=== PATIENT | female | born 1990 | race Caucasian/White ===

== ENCOUNTER 2024-05-27 05:16 | Inpatient (IN) ==
--- NOTE | 2024-05-16 15:20 | Anesthesiology Consultation ---
Date of Service May 16, 2024 Assessment & Plan (1) Encounter for pre-operative examination: Chart Review Chart Review: Acceptable Risk for Surgery and Patient NOT seen in Pre Admission Testing Infectious Disease screening: Per PAT nursing assessment on 05/16/24, No known infectious disease contacts in past 10 days or current infectious disease symptoms. No recent travel outside the country. History Surgery Operation Date: 05/27/24 07:30 Proposed Procedures p Section (Delivery of Baby Through Abdominal Incision) - Alba hartman DO Height/Weight Height: 5 ft 10 in Weight: 88.451 kg Allergies Allergy/AdvReac Type Severity Reaction Status Date / Time No Known Allergies Allergy Verified 05/16/24 14:02 Medications Home Medications Medication Instructions Recorded Confirmed Last Taken prenat.vits,prema,[id number] 1 tab PO QAM 10/03/23 05/16/24 Unknown calcium carbonate [Tums] 1 tab PO DAILY PRN Acid Reflux 03/19/24 05/16/24 Unknown Past Medical History Medical History (Updated 05/16/24 @ 15:17 by Carly Adame PA-C) Acid reflux occasional History of COVID-19 (2021) no hosp; resolved Past Family History Family History Aunt Breast cancer Grandmother (Maternal) Colorectal cancer Past Surgical History Surgical History Hx of section Hx of wisdom tooth extraction Social History Smoking Status: Never smoker Do You Dip or Chew Tobacco: No Hx Alcohol Use: No Hx Substance Use: No substance use type: does not use
--- NOTE | 2024-05-24 09:36 | History & Physical Report ---
Date of Service May 24, 2024 Assessment & Plan (1) Previous delivery affecting , antepartum: Plan: Plan for repeat section, reviewed consent, questions answered. History of Present Illness Chief Complaint: scheduled repeat CS Primary Care Provider: JASON PCP 33yo with EDC 05/19/24, scheduled for default repeat Csection. Prior section for intolerance of labor. Need to obtain operative note LTCS confirmed on op note--akh -Desires trial of labor after , consent signed. C/S SCHEDULED FOR 05/27/[address] JENSEN Persistent R umbilical vein on anatomy ECHO offered /[id number]-1/5/24--WNL Allergies Allergy/AdvReac Type Severity Reaction Status Date / Time No Known Allergies Allergy Verified 05/24/24 08:47 Home Medications Medication Instructions Recorded Confirmed Type prenat.vits,prema,[id number]-[id number]-[id number] 1 tab PO QAM 10/03/23 05/24/24 History calcium carbonate [Tums] 1 tab PO DAILY PRN Acid Reflux 03/19/24 05/24/24 History Patient History Medical History Acid reflux occasional History of COVID-19 (2021) no hosp; resolved Surgical History Hx of section Hx of wisdom tooth extraction Family History Aunt Breast cancer Grandmother (Maternal) Colorectal cancer Social History Smoking Status: Never smoker Second Hand Exposure: No; Do You Dip or Chew Tobacco: No; Hx Alcohol Use: No Hx Substance Use: No Preferred Language: Yemeni Communication Ability: Effective 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 Hand Required: No Beliefs That Will Affect Care: None marital status: marital status details: Herber (33) [phone] Current Living Situation: Spouse current occupational status: unemployed Feels Safe at Home: Yes Assistive Devices: None Review of Systems All systems reviewed & are unremarkable except as noted in HPI & below Physical Exam Constitutional: WD/WN, vitals as above Respiratory: normal respiratory effort, lungs clear to auscultation no respiratory distress Cardiovascular: Rate/Rhythm: regular rate and regular rhythm Gastrointestinal (Abdomen): Inspection/Auscultation: abdomen normal to inspection Percussion/Palpation: abdomen soft; abdomen nontender Gravid. No s/s chorio or abruption. Skin: no rashes, warm and dry Psychiatric: A+Ox3, euthymic affect Coding Level of Care Code None Diagnoses Previous delivery affecting , antepartum O34.219
[2024-05-27] MEDS ORDERED: SODIUM CHLORIDE 0.9% 250 ML IV PRN (05:25)
[2024-05-27] MEDS: LACTATED RINGER'S 1,000 ML IV SCH ×2 (05:30→06:33)
[2024-05-27] MEDS ORDERED: LACTATED RINGER'S 1,000 ML IV SCH ×2 (05:30→09:27)
[2024-05-27] MEDS ORDERED: ACETAMINOPHEN 500 MG TAB PO SCH (06:00)
[2024-05-27] MEDS ORDERED: ceFAZolin 2000MG 2,000 MG/15 ML SYR IV SCH (06:00)
[2024-05-27] MEDS ORDERED: CITRIC ACID/SODIUM CITRATE 15 ML UDC PO SCH (06:00)
[2024-05-27 06:01] LABS: Hematocrit (blood only) 32.3 % (37.0-47.0); Hemoglobin 11.2 g/dl (12.0-16.0); Mean Corpuscular Hemoglobin 30.8 pg (25.0-34.0); Mean Corpuscular Hgb Conc 34.7 g/dL (32.0-36.0); Mean Corpuscular Volume 88.7 fL (80.0-100.0); Mean Platelet Volume 11.5 fL (9.4-12.4); Platelet Count 166 K/uL (130-400); RDW Coefficient of Variation 13.3 % (11.5-14.5); RDW Standard Deviation 43.6 fL (36.4-46.3); Red Blood Count 3.64 M/uL (4.20-5.40); White Blood Count 7.74 K/ul (4.8-10.8)
[2024-05-27] MEDS: ACETAMINOPHEN 500 MG TAB PO SCH (06:31)
[2024-05-27] MEDS ORDERED: fentaNYL citrate PF 100 MCG/2 ML VIAL ONE (06:52)
[2024-05-27] MEDS ORDERED: DEXAMETHASONE SOD INJ 4 MG/ML VIAL ONE (06:52)
[2024-05-27] MEDS ORDERED: MoRPHine SULFATE PF 1 MG/ML 10 ML AMP/VIAL ONE (06:52)
[2024-05-27] MEDS ORDERED: KETOROLAC 30 MG/ML VIAL ONE (06:52)
[2024-05-27] MEDS ORDERED: OXYTOCIN 10 UNITS/ML VIAL ONE (06:52)
[2024-05-27] MEDS ORDERED: PHENYLEPHRINE 100MCG/ML 10ML SYR IV ONE (06:52)
[2024-05-27] MEDS ORDERED: ONDANSETRON INJ 2 MG/ML 2 ML VIAL ONE (06:52)
[2024-05-27] MEDS ORDERED: PHENYLEPHRINE HCL 25 MG/250 ML NSS IV ONE (06:52)
[2024-05-27] MEDS: CITRIC ACID/SODIUM CITRATE 15 ML UDC PO SCH (07:07)
--- NOTE | 2024-05-27 07:23 | History & Physical Bridge Note ---
Date of Service May 27, 2024 History & Physical Bridge Note I have examined the patient, reviewed the History & Physical and in the interval since the performance of the History & Physical I have noted the following changes of clinical significance: no changes noted
[2024-05-27] MEDS: ceFAZolin 2,000 MG in SYRINGE 0 ML IV SCH (07:33)
[2024-05-27] MEDS ORDERED: ePHEDrine sulfate 50 MG/5 ML SYR ONE (07:59)
[2024-05-27] MEDS ORDERED: ePHEDrine sulfate 50 MG/ML AMP IV PRN (08:04)
[2024-05-27] MEDS ORDERED: NALOXONE HCL 1 MG in SODIUM CHLORIDE 0.9% 1,000 ML IV PRN (08:04)
[2024-05-27] MEDS ORDERED: NALBUPHINE HCL INJ 10 MG/ML AMP IV PRN (08:04)
[2024-05-27] MEDS ORDERED: LACTATED RINGER'S 500 ML IV PRN (08:04)
[2024-05-27] MEDS ORDERED: ONDANSETRON INJ 2 MG/ML 2 ML VIAL IV PRN (08:04)
[2024-05-27] MEDS ORDERED: KETOROLAC 30 MG/ML VIAL IV PRN (08:04)
[2024-05-27] MEDS ORDERED: diphenhydrAMINE 50 MG/ML VIAL IV PRN ×2 (08:04→09:27)
[2024-05-27] MEDS ORDERED: PROMETHAZINE 6.25 MG/50.25 ML BAG IV PRN (08:04)
[2024-05-27] MEDS ORDERED: NALOXONE HCL 0.4 MG/1 ML VIAL/CARP IV PRN (08:04)
[2024-05-27] MEDS ORDERED: NALOXONE HCL 0.08 MG in SYRINGE 1.8 ML IV PRN (08:04)
[2024-05-27] MEDS ORDERED: NO NARCOTICS OR SEDATIVES SCH (08:15)
[2024-05-27] MEDS ORDERED: DC INTRASPINAL MORPHINE SCH (08:15)
[2024-05-27 08:40] LABS: Base Excess Cord Venous Blood -0.8 mEq/L (-7.7-1.9); Cord Venous Blood HCO3 24 mmol/L (18.4-26.8); Cord Venous Blood PCO2 37 mmHg (30.4-57.2); Cord Venous Blood PO2 44 mmHg (14.1-43.3); Cord Venous Blood pH 7.41 (7.20-7.44); O2 Saturation Cord Venous Bld 87.1 % (<68)
[2024-05-27 08:41] LABS: Base Excess Cord Arterial Bld -2.9 mEq/L (-9-1.8); CO2 Cord Arterial Blood 47 mmHg (39.1-73.5); HCO3 Cord Arterial Blood 24 mmol/L (19.7-28.5); Oxygen Sat Cord Arterial Blood < 60.0 % (<60); PO2 Cord Arterial Blood 26 mmHg (4.1-31.7); pH Cord Arterial Blood 7.31 (7.1-7.38)
--- NOTE | 2024-05-27 09:14 | Operative Report ---
Post Operative Report Pre & Post Diagnosis Operation Date: 05/27/24 07:30 Pre-Op Diagnosis: History of section, post-dates delivery Post-Op Diagnosis: Same I identified the patient and participated in the time-out.: Yes Procedure Operation Date: 05/27/24 07:30 Actual Procedures p Repeat Low Transverse Section - DO bianca Falk Surgical scar revision Surgeon DO Assistant Bianca Falk MD Quantitative Blood Loss (QBL) 401 Findings Consistent with Post-Op Diagnosis Normal appearing uterus, tubes, ovaries. Viable female , Apgars 8/9. Weight 5#11.8oz. Specimens placenta, cord blood, cord gas Drains clifford, clear yellow Anesthesia Type Spinal Complications none Disposition Accompanied Patient To Recovery: Yes Disposition: L&D Indications 33yo @ 41 09/03, history of x 1, postdates without onset of labor, therefore repeat section was recommended. Description of Procedure The patient was seen in her labor and delivery room, risks benefits and alternatives to surgery were reviewed. Informed consent obtained in the office. Questions were answered. She was taken to the operating room, spinal anesthesia was administered. She was then prepared and draped in the usual sterile fashion in the supine position with a leftward tilt. Timeout was confirmed. A Pfannenstiel skin incision was made with a scalpel with removal of prior scar, and carried through to the underlying layer of fascia. Fascia was nicked at midline, and this incision was extended bilaterally. The superior aspect of the fascial incision was grasped with Vadim clamps x2, elevated off the underlying rectus abdominis muscles, and dissected sharply and bluntly. In similar fashion, the inferior aspect of the fascial incision was dissected. The rectus abdominis muscles were , and the peritoneum was entered bluntly digitally. This was extended bilaterally. The bladder flap was taken down carefully using Metzenbaum scissors. Using a new scalpel, a low transverse uterine incision was created. Clear amniotic fluid noted. The was delivered from a cephalic presentation. The head delivered, followed by shoulders and body. Spontaneous cry on the field. No nuchal cord noted. The cord was doubly clamped and cut, and the was handed off to the waiting newspaper writer. A segment was retained for cord gases. Cord blood was obtained. The placenta was delivered spontaneously intact. The uterus was exte riorized, and cleared of all clots and debris. The hysterotomy incision was reapproximated using 0 Vicryl in a running locked stitch. A second layer of the same suture was used to imbricate the incision. Posterior uterus was evaluated and normal. The uterus was returned to the abdomen, and gutters were cleared of clots and debris. Excellent hemostasis was observed. The fascial incision was reapproximated using 0 Vicryl in a running stitch. The subcutaneous tissue was irrigated, and reapproximated using 2-0 plain gut in a running stitch. A second layer of 2-0 plain gut suture was used to reapproximate, taking tension off the skin. The skin was reapproximated using 4- 0 Vicryl in a running subcuticular stitch. Steri-Strips and a bandage were applied. The patient tolerated the procedure well, and will be taken to the recovery area in stable and good condition. I attest to the content of the Intraoperative Record and any orders documented therein. Any exceptions are noted below. OB Procedure Charges 32337
[2024-05-27] MEDS ORDERED: SENNA 8.6 MG TAB PO PRN (09:27)
[2024-05-27] MEDS ORDERED: HYDROCORTISONE ACETATE 25 MG SUPP PR PRN (09:27)
[2024-05-27] MEDS ORDERED: MAGNESIUM HYDROXIDE SUSP 30 ML UDC PO PRN (09:27)
[2024-05-27] MEDS ORDERED: CALCIUM CARBONATE 500 MG CHEWABLE TAB PO PRN (09:27)
[2024-05-27] MEDS ORDERED: BENZOCAINE 20% SPRY 85 APPLN/85 GM CAN EXT PRN (09:27)
[2024-05-27] MEDS: SODIUM CHLORIDE 0.9% 1,000 ML IV SCH (09:59)
[2024-05-27] MEDS: MoRPHine SULFATE PF 1 MG/ML 10 ML AMP/VIAL INT SPINAL ONE (09:59)
--- NOTE | 2024-05-27 10:21 | Anesthesiology Progress Note ---
Date of Service May 27, 2024 Anesthesia Post Procedure Vital Signs Vital Signs: Temp Pulse Resp BP Pulse Ox 05/27/24 10:18 56 L 124/65 05/27/24 10:17 64 97 05/27/24 10:12 55 L 96 05/27/24 10:09 57 L 118/57 L 05/27/24 10:07 59 L 96 05/27/24 10:05 36.8 C 20 05/27/24 10:02 55 L 96 05/27/24 09:58 20 05/27/24 09:58 56 L 113/59 L 05/27/24 09:57 59 L 96 05/27/24 09:52 54 L 95 05/27/24 09:48 20 05/27/24 09:48 52 L 117/60 05/27/24 09:47 56 L 95 05/27/24 09:42 54 L 96 05/27/24 09:38 16 05/27/24 09:38 54 L 129/64 05/27/24 09:37 56 L 94 05/27/24 09:34 55 L 90 05/27/24 09:32 59 L 95 05/27/24 09:30 20 05/27/24 09:30 52 L 121/58 L 05/27/24 09:28 51 L 93 05/27/24 09:27 55 L 95 05/27/24 09:22 51 L 97 05/27/24 09:18 20 05/27/24 09:18 47 L 139/70 05/27/24 09:16 52 L 98 05/27/24 09:11 51 L 99 05/27/24 09:07 37 C 05/27/24 09:07 53 L 138/67 05/27/24 09:06 50 L 100 05/27/24 07:21 36.8 C 20 05/27/24 07:17 60 127/69 05/27/24 05:26 36.9 C 18 124/70 05/27/24 05:23 68 124/70 Pain Intensity Abdomen: Pain Intensity: 0 Transfer of Care Handoff Completed per policy Notes Mental Status: alert / awake / arousable and participated in evaluation Patient Amnestic to Procedure: No Nausea / Vomiting: adequately controlled Pain: adequately controlled Airway Patency, RR, SpO2: stable & adequate BP & HR: stable & adequate Hydration State: stable & adequate Neuraxial Anesthesia: was administered and sensory block is resolving Anesthetic Complications: no major complications apparent and Pt Satisfied with anesthetic care
[2024-05-27] MEDS: SIMETHICONE 80 MG CHEW PO SCH (12:54)
[2024-05-27] MEDS: HYDROmorphone INJ 0.5 MG/0.5 ML SYR IV PRN (12:55)
[2024-05-27] MEDS: OXYTOCIN 30 UNITS/LR 1,003 ML IV SCH (13:01)
[2024-05-27] MEDS: DIPHTHER/TETAN/PERTUS Vaccine (Tdap, Adol/Adult) 0.5mL IM ONE (13:14)
[2024-05-27] MEDS: IBUPROFEN 600 MG TAB PO SCH (14:19)
[2024-05-27] MEDS: ACETAMINOPHEN 325 MG TAB PO SCH (14:21)
[2024-05-27] MEDS: DOCUSATE SODIUM 100 MG CAP PO SCH (20:24)
[2024-05-28] MEDS ORDERED: oxyCODONE HCL IR 5 MG TAB (IMMEDIATE RELEASE) PO PRN (02:04)
[2024-05-28] MEDS ORDERED: HYDROmorphone INJ 0.5 MG/0.5 ML SYR IV PRN (02:04)
[2024-05-28] MEDS ORDERED: PROMETHAZINE 12.5 MG/50.5 ML BAG IV PRN (02:04)
[2024-05-28] MEDS ORDERED: ONDANSETRON INJ 2 MG/ML 2 ML VIAL IV PRN (02:04)
[2024-05-28] MEDS ORDERED: diphenhydrAMINE Capsule 25 MG CAP PO PRN (02:04)
[2024-05-28 04:18] VITALS: RESP 18
[2024-05-28 06:20] LABS: Basophils # (auto) 0.02 K/uL (0.00-0.20); Basophils % (auto) 0.2 %; Eosinophils # (auto) 0.06 K/uL (0.00-0.50); Eosinophils % (auto) 0.5 %; Hematocrit (blood only) 34.5 % (37.0-47.0); Hemoglobin 11.4 g/dl (12.0-16.0); Immature Granulocytes # (auto) 0.11 K/uL (0.01-0.20); Lymphocytes # (auto) 1.89 K/uL (1.20-3.40); Mean Corpuscular Hemoglobin 30.5 pg (25.0-34.0); Mean Corpuscular Volume 92.2 fL (80.0-100.0); Mean Platelet Volume 11.4 fL (9.4-12.4); Monocytes # (auto) 0.89 K/uL (0.11-0.59); Neutrophils # (auto) 8.17 K/uL (1.40-6.50); Neutrophils % (auto) 73.3 %; Platelet Count 156 K/uL (130-400); RDW Coefficient of Variation 13.7 % (11.5-14.5); RDW Standard Deviation 46.4 fL (36.4-46.3); Red Blood Count 3.74 M/uL (4.20-5.40); White Blood Count 11.14 K/ul (4.8-10.8)
--- NOTE | 2024-05-28 07:14 | Obstetrical Progress Note ---
Date of Service May 28, 2024 Assessment & Plan (1) Encounter for assessment: Plan: Patient is POD 1 s/p repeat c/s and doing well - Eating well, voiding well, ambulating well - vitals reviewed and within normal limits - pain well controlled with analgesics - OOB, ambulation, diet progression as tolerated - Blood type: B+, GBS neg, rubella immune - Plan to discharge tomorrow - After discharge, 6 week follow up with OB Admission and Anticipated Discharge Date Admission Date: May 27, 2024 Supervising Physician Co-Signing Physician Notes Resident Physician Supervision Note: I interviewed and examined the patient. Discussed with Dr. Lerner and agree with findings and plan as documented in the note. Any exceptions or clarifications are listed here: POD1 s/p rLTCS, doing well. VSS, exam benign and wnl, incision c/d/i. [place] [facility] [place] is wondering if possible to dc today if need - meeting all milestones, rec seeing how the am goes, if all ok then ok to dc this afternoon if desires Documented By: Terese Pagan MD Subjective 33 yo post-operative day 1 s/p repeat Ambulation: ambulating normally Voiding: no voiding problems Passing Gas:: Yes Diet Tolerance:: regular diet Lochia:: Small Feeding Type:: bottle feeding Current Pain Level:0/10 Resting comfortably this AM in NAD. Denies LOPEZ, CP, SOB, N/V/D, LE pain/swelling. Physical Exam Physical Exam: General: patient resting comfortably, NAD, non-toxic in appearance, answers questions appropriately. Skin: warm, dry, intact HEENT: NC/AT, anicteric sclera, conjunctiva without injection, moist mucus membranes. Heart: +S1/S2, regular, no m/r/g Lungs: equal air entry bilaterally, no rales/rhonchi/wheezes Abd: +BS, soft, NT/ND, uterine fundus firm at umbilicus, caesarean incision C/D/I. Ext: warm, no clubbing/cyanosis or edema, Sarika's neg. Neuro: nonfocal, speech intact, no facial droop, moving all extremities. Results & Data Vital Signs (Past 12 Hours) Vital Signs Temp Pulse Resp BP Pulse Ox O2 Del Method 05/28/24 03:15 36.8 C 59 L 18 130/80 96 Room Air 05/28/24 02:04 16 96 05/28/24 01:01 16 95 05/28/24 00:01 16 96 05/27/24 23:35 36.6 C 59 L 16 123/73 96 Room Air 05/27/24 22:57 18 97 05/27/24 22:00 18 98 05/27/24 21:05 20 96 05/27/24 19:20 Room Air 05/27/24 19:20 37.0 C 78 20 130/81 99 Room Air (1) Encounter for assessment visit type: exam and care immediately after delivery Qualified Code(s): Z39.0 - Encounter for care and examination of mother immediately after delivery
[2024-05-28] MEDS: FERROUS SULFATE 325 MG TAB PO SCH (07:19)
[2024-05-28] MEDS: PRENATAL VITAMIN 1 TAB PO SCH (07:19)
[2024-05-28 09:01] VITALS: BP 117/85; PULSE 76; TEMP 98.6; O2SAT 98
[2024-05-28] MEDS ORDERED: bisacodyL 5 MG TABEC PO SCH (20:00)
[2024-05-29] MEDS ORDERED: bisacodyL 10 MG SUPP PR PRN (09:06)
[2024-05-29] MEDS ORDERED: IBUPROFEN 600 MG TAB PO PRN (14:06)
[2024-05-29] MEDS ORDERED: ACETAMINOPHEN 325 MG TAB PO PRN (14:15)
--- NOTE | 2024-05-29 15:06 | Discharge Summary ---
Date of Service May 29, 2024 Admission HPI Per Admitting Provider 33yo with EDC 05/19/24, scheduled for default repeat Csection. Prior section for intolerance of labor. Need to obtain operative note LTCS confirmed on op note--akh -Desires trial of labor after , consent signed. C/S SCHEDULED FOR 05/27/[address] TORREZ Persistent R umbilical vein on anatomy ECHO offered /[id number]-XBV-8/5/24--WNL Admission Exam (Per Admitting) Constitutional WD/WN, vitals as above Respiratory normal respiratory effort, lungs clear to auscultation no respiratory distress Cardiovascular Rate/Rhythm: regular rate and regular rhythm Gastrointestinal (Abdomen) Inspection/Auscultation: abdomen normal to inspection Percussion/Palpation: abdomen soft; abdomen nontender Skin no rashes, warm and dry Psychiatric A+Ox3, euthymic affect Discharge Data Consultations 05/27/24 05:23 Consult Anesthesiology Stat Procedures Performed Operation Date: 05/27/24 07:30 Actual Procedures p Section(Not Applicable) - Alba Torrez, DO Hospital Course (1) Encounter for assessment: Patient is POD 1 s/p repeat c/s and doing well - Eating well, voiding well, ambulating well - vitals reviewed and within normal limits - pain well controlled with analgesics - OOB, ambulation, diet progression as tolerated - Blood type: B+, GBS neg, rubella immune - Plan to discharge tomorrow - After discharge, 6 week follow up with OB Supervising Physician Co-Signing Physician Notes Resident Physician Supervision Note: I interviewed and examined the patient. Discussed with Dr. Lerner and agree with findings and plan as documented in the note. Any exceptions or clarifications are listed here: POD1 s/p rLTCS, doing well. VSS, exam benign and wnl, incision c/d/i. Baby transferred last night to [facility] [place] so she is wondering if possible to dc today if need - meeting all milestones, rec seeing how the am goes, if all ok then ok to dc this afternoon if desires Documented By: Terese Pagan MD Coding Level of Care Code None Diagnoses Encounter for care or examination of mother immediately after delivery Z39.0 visit type: exam and care immediately after delivery
== END 2024-05-28 11:55 | disposition home or self-care (01) | DRG 788 ==
LOC: 4S1 05:16 → EDSTATUS 07:30 → 4E2 12:11
DX: Z3A.41 41 weeks gestation of pregnancy; Z37.0 Single live birth; O48.0 Post-term pregnancy; O34.211 Maternal care for low transverse scar from previous cesarean delivery